=== PATIENT | female | born 1945 | race Caucasian/White ===

== ENCOUNTER → 2018-09-15 | Outpatient (REF) | payer MEDICARE ==
[~2018-09-15] MED LIST: AMLO5TAB2 PO; ASPI81TA85 PO; BUSP5TA PO; FAMO40TA3 PO; HYDR-3644 PO; LISI5TAB PO; SYNT75TA PO; TYLE325T5 PO; VITA200016 PO; XANA0.25 PO
[2018-09-15 13:58] LABS: APPEARANCE, URINE HAZY (CLEAR); BACTERIA, URINE AUTO NEGATIVE (NEGATIVE); BILIRUBIN, URINE AUTO NEGATIVE (NEGATIVE); BLOOD, URINE BLOOD NEGATIVE (NEGATIVE); COLOR, URINE YELLOW (YELLOW); GLUCOSE, URINE (UA) AUTO NEGATIVE (NEGATIVE); KETONE, URINE AUTO NEGATIVE (NEGATIVE); LEUKOCYTE ESTERASE, URINE AUTO NEGATIVE (NEGATIVE); MUCUS, URINE SMALL (NEGATIVE); NITRITE, URINE AUTO NEGATIVE (NEGATIVE); PROTEIN, URINE AUTO NEGATIVE (NEGATIVE); RBC, URINE AUTO 1 /HPF (0-3); SPECIFIC GRAVITY URINE AUTO 1.011 (1.002-1.035); SQUAMOUS EPITHELIAL CELL UR AU 11 /HPF (0-6); UROBILINOGEN, URINE AUTO 0.2 mg/dL (0.0-2.0); WBC, URINE AUTO 0 /HPF (0-3)
== END ==
LOC: M SFHCPLAZ 13:01
PROVIDERS: ATTEND Internal Medicine Infectious Disease
DX: N39.0 Urinary tract infection, site not specified (principal)
CPT/HCPCS: 81001; 87086; G0463

== ENCOUNTER → 2019-02-28 | Outpatient (REF) | payer MEDICARE ==
[2019-02-28 16:51] LABS: APPEARANCE, URINE CLOUDY (CLEAR); BACTERIA, URINE AUTO 2+ (NEGATIVE); BILIRUBIN, URINE AUTO NEGATIVE (NEGATIVE); BLOOD, URINE BLOOD NEGATIVE (NEGATIVE); CALCIUM OXALATE CRYSTALS LARGE; COLOR, URINE YELLOW (YELLOW); GLUCOSE, URINE (UA) AUTO NEGATIVE (NEGATIVE); KETONE, URINE AUTO NEGATIVE (NEGATIVE); LEUKOCYTE ESTERASE, URINE AUTO 2+ (NEGATIVE); MUCUS, URINE SMALL (NEGATIVE); NITRITE, URINE AUTO NEGATIVE (NEGATIVE); PROTEIN, URINE AUTO NEGATIVE (NEGATIVE); RBC, URINE AUTO 1 /HPF (0-3); SPECIFIC GRAVITY URINE AUTO 1.013 (1.002-1.035); SQUAMOUS EPITHELIAL CELL UR AU 17 /HPF (0-6); UROBILINOGEN, URINE AUTO 0.2 mg/dL (0.0-2.0); WBC, URINE AUTO 65 /HPF (0-3)
== END ==
LOC: M SFHCPLAZ 15:30
PROVIDERS: ATTEND Internal Medicine Infectious Disease
DX: N39.0 Urinary tract infection, site not specified (principal)
CPT/HCPCS: 81001; 87088; 87186; G0463

== ENCOUNTER → 2020-04-23 | Outpatient (REF) | payer MEDICARE ==
[2020-04-23 18:26] LABS: APPEARANCE, URINE CLOUDY (CLEAR); BACTERIA, URINE AUTO 1+ (NEGATIVE); BILIRUBIN, URINE AUTO NEGATIVE (NEGATIVE); BLOOD, URINE BLOOD NEGATIVE (NEGATIVE); COLOR, URINE YELLOW (YELLOW); GLUCOSE, URINE (UA) AUTO NEGATIVE (NEGATIVE); KETONE, URINE AUTO NEGATIVE (NEGATIVE); LEUKOCYTE ESTERASE, URINE AUTO TRACE (NEGATIVE); MUCUS, URINE SMALL (NEGATIVE); NITRITE, URINE AUTO NEGATIVE (NEGATIVE); PROTEIN, URINE AUTO NEGATIVE (NEGATIVE); RBC, URINE AUTO 2 /HPF (0-3); SQUAMOUS EPITHELIAL CELL UR AU 15 /HPF (0-6); UROBILINOGEN, URINE AUTO 0.2 mg/dL (0.0-2.0); WBC, URINE AUTO 4 /HPF (0-3)
== END ==
LOC: M SFHCPLAZ 17:16
PROVIDERS: ATTEND Internal Medicine Infectious Disease
DX: R30.0 Dysuria (principal)
CPT/HCPCS: 81001; 81002; 87086; G0463

== ENCOUNTER → 2020-05-23 | Outpatient (REF) | payer MEDICARE ==
[2020-05-23 18:06] LABS: APPEARANCE, URINE CLOUDY (CLEAR); BACTERIA, URINE AUTO 1+ (NEGATIVE); BILIRUBIN, URINE AUTO NEGATIVE (NEGATIVE); BLOOD, URINE BLOOD NEGATIVE (NEGATIVE); CALCIUM OXALATE CRYSTALS SMALL; COLOR, URINE YELLOW (YELLOW); GLUCOSE, URINE (UA) AUTO NEGATIVE (NEGATIVE); KETONE, URINE AUTO NEGATIVE (NEGATIVE); LEUKOCYTE ESTERASE, URINE AUTO TRACE (NEGATIVE); MUCUS, URINE SMALL (NEGATIVE); NITRITE, URINE AUTO NEGATIVE (NEGATIVE); PROTEIN, URINE AUTO 1+ mg/dL (NEGATIVE); RBC, URINE AUTO 2 /HPF (0-3); SPECIFIC GRAVITY URINE AUTO 1.013 (1.002-1.035); SQUAMOUS EPITHELIAL CELL UR AU 12 /HPF (0-6); UROBILINOGEN, URINE AUTO 0.2 mg/dL (0.0-2.0); WBC, URINE AUTO 6 /HPF (0-3)
== END ==
LOC: M SFHCPLAZ 16:54
PROVIDERS: ATTEND Internal Medicine Infectious Disease
DX: N39.0 Urinary tract infection, site not specified (principal)
CPT/HCPCS: 81001; 87086; G0463

== ENCOUNTER 2020-12-02 16:16 | Observation (INO) | payer MEDICARE ==
[~2020-12-02] VITALS: Ht 165.1 cm; Wt 89.1 kg
--- NOTE | 2020-12-02 19:26 | REP ---
INDICATION: SEPSIS/SHOCK. COMPARISON: None. TECHNIQUE: Portable FINDINGS: The technique utilized in obtaining the radiograph has magnified the cardiac silhouette and accentuated the interstitial markings. There is mild cardiomegaly accentuated by technique. The lung sidhu are clear. No patchy opacities or pleural effusions are identified. Mild interstitial fibrotic changes are suspected. The osseous structures are within normal limits. IMPRESSION: Mild cardiomegaly without evidence of acute cardiopulmonary disease <Electronically signed by Jere Chavez > 12/02/201921
[2020-12-02] MEDS ORDERED: ALPRAZolam 0.25 MG TAB PO ONE (19:45)
[2020-12-02 20:28] LABS: BASO % 0.4 % (0.0-1.0); EOS % 0.4 % (0.0-3.0); HEMATOCRIT 37.5 % (36.0-47.0); LYMPH # 1.5 10^3/uL (1.5-5.0); LYMPH % 21.9 % (24.0-44.0); MEAN CORPUSCULAR HEMOGLOBIN 29.5 pg (27.0-33.0); MEAN CORPUSCULAR HGB CONC 34.7 g/dl (32.0-36.5); MEAN CORPUSCULAR VOLUME 85.2 fl (80.0-96.0); MONO # 0.6 10^3/uL (0.0-0.8); MONO % 8.8 % (2.0-8.0); NEUTROPHILS # 4.5 10^3/uL (1.5-8.5); NEUTROPHILS % 67.5 % (36.0-66.0); PLATELET COUNT, AUTOMATED 452 10^3/uL (150-450); WHITE BLOOD COUNT 6.7 10^3/uL (4.0-10.0)
[2020-12-02] MEDS ORDERED: PARO5TAB PO (20:38)
[2020-12-02] MEDS ORDERED: AMLO1TAB25 PO (20:38)
[2020-12-02] MEDS ORDERED: EUTH100T PO (20:38)
[2020-12-02 20:42] LABS: INR 0.92; PROTHROMBIN TIME 12.6 SECONDS (12.5-14.3)
[2020-12-02 20:43] LABS: PARTIAL THROMBOPLASTIN TIME 28.9 SECONDS (24.2-38.5)
[2020-12-02 21:04] LABS: BLOOD UREA NITROGEN 7 MG/DL (7-18); CALCIUM LEVEL 8.2 MG/DL (8.8-10.2); CARBON DIOXIDE LEVEL 26 MEQ/L (21-32); CHLORIDE LEVEL 102 MEQ/L (98-107); CREATININE FOR GFR 0.91 MG/DL (0.55-1.30); GLOMERULAR FILTRATION RATE > 60.0 (>39); GLUCOSE, FASTING 103 MG/DL (70-100); POTASSIUM SERUM 2.9 MEQ/L (3.5-5.1); SODIUM LEVEL 136 MEQ/L (136-145)
[2020-12-02 21:05] LABS: ALBUMIN 3.2 GM/DL (3.2-5.2); ALT/SGPT 40 U/L (12-78); BILIRUBIN,DIRECT 0.3 MG/DL (0.0-0.2); BILIRUBIN,TOTAL 0.9 MG/DL (0.2-1.0); CK-MB VALUE MASS 5.1 NG/ML (<3.6); CPK CREATINE PHOSPHOKINASE 234 U/L (26-192); LIPASE 92 U/L (73-393); MB/CK RELATIVE INDEX 2.18 (< OR =4); TOTAL PROTEIN 6.9 GM/DL (6.4-8.2); TROPONIN I < 0.02 NG/ML (< 0.10)
[2020-12-02] MEDS ORDERED: POTASSIUM CHLORIDE 10 MEQ SR TABLET PO ONE (22:15)
[2020-12-02] MEDS ORDERED: KCL 10MEQ/100ML SWI (KRUN) 10 MEQ in IV 1 EA IV ONE (22:15)
--- NOTE | 2020-12-02 22:23 | IPNPDOC ---
Text Note Date of Service The patient was seen on 12/02/20. VS,Rodrigo, I+O VS, Yamilethe, I+O Laboratory Tests 12/02/20 19:58 Vital Signs Date Time Temp Pulse Resp B/P (MAP) Pulse Ox O2 Delivery O2 Flow Rate FiO2 12/02/20 21:03 98.0 88 22 138/76 (96) 96 Room Air REBA BILLY MD Dec 02, 2020 22:23
[2020-12-02] MEDS ORDERED: ACETAMINOPHEN TAB 650MG DOSE (2X325MG) PO PRN (22:55)
[2020-12-02] MEDS ORDERED: ONDANSETRON 4MG/2ML VIAL IV PRN (22:55)
[2020-12-02] MEDS: KCL 40MEQ in NS 1000ML 1,000 ML IV SCH (23:00)
--- NOTE | 2020-12-02 23:14 | HPEPDOC ---
[facility] Medical History & Physical Date of Admission Dec 02, 2020 Date of Service: Dec 02, 2020 Attending Physician: REBA BILLY MD History and Physical CHIEF COMPLAINT: [75 y/o female with a cc of fatigue, inability to urinate] HISTORY OF PRESENT ILLNESS: [This is a 75 y/o female with a pmh of TIA, hld, htn, hypothyroidism, anxiety and c diff colitis who presents to the ED with a cc of weakness, fatigue and new onset inability to void. Patient states that she has felt on and off weak and fatigued over the past few days and suddenly today realized that she had not urinated and did not feel the urge to. Patient admits to recent poor oral intake d/t her fatigue. Patient states that she has also been experiencing a lot of anxiety in her personal life that she feels is adding to her current situation. Patient spontaneously urinated several times after presenting to the ED. Patient denies fever, chills, sob, chest pain, abd pain, n/v/d/c. Of note, patient found to be COVID+ and have a hypokalemia of 2.9 in the ED. ] PAST MEDICAL HISTORY: 1. [See HPI PAST SURGICAL HISTORY: 1. [Cholecystectomy]. 2. [Appendectomy]. 3. [Colonic polyps 4. 2 Tubal ligations]. SOCIAL HISTORY: Tobacco use:[Denies] ETOH: [Denies] Illicit drug use: [Denies] FAMILY HISTORY: Reviewed - none pertinent ALLERGIES: Please see below. REVIEW OF SYSTEMS: CONSTITUTIONAL: [Denies fever, chills]. HEENT: [Denies uri sx]. CARDIOVASCULAR: [See HPI]. RESPIRATORY: [See HPI]. GASTROINTESTINAL: [See HPI]. GENITOURINARY: [See HPI]. SKIN: [Denies rash]. MUSCULOSKELETAL: [Complains of generalized weakness]. NEUROLOGICAL: [Denies syncope, paresthesias]. ENDOCRINE: [Denies hx of DM]. HEMATOLOGIC/LYMPHATIC: [Denies easy bruising]. HOME MEDICATIONS: Please see below. PHYSICAL EXAMINATION: VITAL SIGNS: Please see below. GENERAL APPEARANCE: [This is a frail appearing 75 y/o female. She does not appear to be in any respiratory distress.]. HEENT: [No mass or lesion. EOMI. No scleral icterus. Nares patent. Oral mucosa dry.]. CARDIOVASCULAR: [Regular rate, rhythm. No murmurs, rubs, gallops]. LUNGS: [Good air flow b/l. No wheezing, rales, rhonchi.]. ABDOMEN: [Soft, nontender]. MUSCULOSKELETAL: [No joint deformity noted]. EXTREMITIES: [No peripheral edema. No overlying skin changes. Pulses intact.]. NEUROLOGICAL: [Speech clear. A+Ox3. No focal deficits.]. PSYCHIATRIC: [Depressed mood. Affect appears appropriate.]. LABORATORY DATA: See below. IMAGING: [CXR: FINDINGS: The technique utilized in obtaining the radiograph has magnified the cardiac silhouette and accentuated the interstitial markings. There is mild cardiomegaly accentuated by technique. The lung sidhu are clear. No patchy opacities or pleural effusions are identified. Mild interstitial fibrotic changes are suspected. The osseous structures are within normal limits. IMPRESSION: Mild cardiomegaly without evidence of acute cardiopulmonary disease] MICROBIOLOGY: Please see below. ASSESSMENT: [his is a 75 y/o female with a pmh of TIA, hld, htn, hypothyroidism, anxiety and c diff colitis who presents to the ED with a cc of weakness, fatigue and new onset inability to void. Patient spontaneously urinated several times after presenting to the ED. Of note, patient found to be COVID+ and have a hypokalemia of 2.9 in the ED.]. . PLAN: 1. [Hypokalemia - Likely 2/2 poor oral intake - Patient received 40 meQ oral and 10 meQ IV in the ED - Will run NS with 40meQ of k overnight and recheck in the morning - Will place patient on tele - Admit to med surg under obs for potassium repletion 2. COVID19 - At this point, patient seems to be asymptomatic besides her fatigue and weakness, which may be moreso explained by her hypokalemia - I do not feel at this time antiviral medication is indicated. Day team may rec onsider 3. HTN - continue lisinopril 4. Hypothyroidism - continue levothyroxine 5. Anxiety - continue paxil DVT prophylaxis - Lovenox]. Vital Signs Vital Signs Date Time Temp Pulse Resp B/P (MAP) Pulse Ox O2 Delivery O2 Flow Rate FiO2 12/02/20 21:03 98.0 88 22 138/76 (96) 96 Room Air Laboratory Data Labs 24H Laboratory Tests 2 6/14/21 19:58: Immature Granulocyte % (Auto) 1.0, Neutrophils (%) (Auto) 67.5H, Lymphocytes (%) (Auto) 21.9L, Monocytes (%) (Auto) 8.8H, Eosinophils (%) (Auto) 0.4, Basophils (%) (Auto) 0.4, Neutrophils # (Auto) 4.5, Lymphocytes # (Auto) 1.5, Monocytes # (Auto) 0.6, Eosinophils # (Auto) 0.0, Basophils # (Auto) 0.0, Nucleated Red Blood Cells % (auto) 0.0, Prothrombin Time 12.6, Prothromb Time International Ratio 0.92, Activated Partial Thromboplast Time 28.9, Urine Color YELLOW, Urine Appearance CLEAR, Urine pH 7.0, Urine Specific [place] 1.002, Urine Protein NEGATIVE, Urine Glucose (UA) NEGATIVE, Urine Ketones NEGATIVE, Urine Blood 1+H, Urine Nitrite NEGATIVE, Urine Bilirubin NEGATIVE, Urine Urobilinogen 0.2, Urine Leukocyte Esterase NEGATIVE, Urine WBC (Auto) 1, Urine RBC (Auto) 0, Urine Hyaline Casts (Auto) 0, Urine Bacteria (Auto) NEGATIVE, Urine Squamous Epithelial Cells 1, Urine Mucus (Auto) SMALL, Urine Sperm (Auto) , Anion Gap 8, Glomerular Filtration Rate > 60.0, Calcium Level 8.2L, Total Bilirubin 0.9, Direct Bilirubin 0.3H, Aspartate Amino Transf (AST/SGOT) 25, Alanine Aminotransferase (ALT/SGPT) 40, Alkaline Phosphatase 136H, Total Creatine Kinase 234H, Creatine Kinase MB 5.1H, Creatine Kinase MB Relative Index 2.18, Troponin I < 0.02, Total Protein 6.9, Albumin 3.2, Albumin/Globulin Ratio 0.9L, Lipase 92 CBC/BMP Laboratory Tests 12/02/20 19:58 Microbiology Microbiology 12/02/20 Respiratory Virus Panel (PCR) ([facility]) - Final, Complete SARS-CoV-2 (COVID 19) Home Medications Scheduled Amlodipine Besylate (Amlodipine Besylate) 10 Mg Tablet, 10 MG PO DAILY Levothyroxine Sodium (Euthyrox) 100 Mcg Tablet, 100 MCG PO DAILY Paroxetine (Paroxetine HCl) 10 Mg Tablet, 10 MG PO DAILY Vancomycin Hcl (Vancomycin HCl) 125 Mg Capsule, 125 MG PO ASDIRECTED STARTED ON 11/20/20: TAKE 1 CAPSULE QID FOR 14 DAYS, THEN 1 CAPSULE BID FOR 7 DAYS, THEN 1 CAPSULE Q2D FOR 6 WEEKS Allergies Coded Allergies: latex (Verified Allergy, Mild, 12/02/20) rash. ampicillin (Verified Allergy, Unknown, 12/02/20) doxycycline (Verified Allergy, Unknown, 12/02/20) nitrofurantoin (Verified Allergy, Unknown, 12/02/20) sulfamethoxazole (Verified Allergy, Unknown, 12/02/20) trimethoprim (Verified Allergy, Unknown, 12/02/20) A-FIB/CHADSVASC A-FIB History Current/History of A-Fib/PAF?: No RICHARD FOUNTAIN Dec 02, 2020 23:14 REBA BILLY MD Dec 03, 2020 06:48
[2020-12-03 00:07] LABS: MAGNESIUM LEVEL 2.2 MG/DL (1.8-2.4)
[2020-12-03 01:02] VITALS: BP 145/67; O2SAT 99
[2020-12-03] MEDS ORDERED: RAMELTEON 8 MG TAB (ROZEREM) PO ONE (02:40)
[2020-12-03 04:00] VITALS: BP 166/72; O2SAT 98
[2020-12-03 05:15] LABS: HEMATOCRIT 36.3 % (36.0-47.0); HEMOGLOBIN 12.4 g/dl (12.0-15.5); MEAN CORPUSCULAR HGB CONC 34.2 g/dl (32.0-36.5); PLATELET COUNT, AUTOMATED 475 10^3/uL (150-450); RED BLOOD COUNT 4.27 10^6/uL (4.00-5.40); WHITE BLOOD COUNT 7.5 10^3/uL (4.0-10.0)
[2020-12-03 05:26] LABS: BLOOD UREA NITROGEN 5 MG/DL (7-18); CALCIUM LEVEL 8.5 MG/DL (8.8-10.2); CARBON DIOXIDE LEVEL 24 MEQ/L (21-32); CHLORIDE LEVEL 109 MEQ/L (98-107); CREATININE FOR GFR 0.91 MG/DL (0.55-1.30); GLOMERULAR FILTRATION RATE > 60.0 (>39); GLUCOSE, FASTING 89 MG/DL (70-100); MAGNESIUM LEVEL 2.3 MG/DL (1.8-2.4); POTASSIUM SERUM 3.8 MEQ/L (3.5-5.1); SODIUM LEVEL 140 MEQ/L (136-145)
[2020-12-03] MEDS ORDERED: VANCOMYCIN ORAL SOL 250MG/5ML ORAL SYRINGE PO SCH (06:00)
[2020-12-03] MEDS ORDERED: LEVOTHYROXINE 100MCG TABLET (0.1MG) PO SCH (06:00)
[2020-12-03] MEDS ORDERED: VANC125C3 PO (06:23)
[2020-12-03 08:00] VITALS: BP 165/65; O2SAT 99
[2020-12-03] MEDS ORDERED: PARoxetine 10MG TABLET PO SCH (09:00)
[2020-12-03] MEDS ORDERED: ENOXAPARIN 40MG/0.4ML SYRINGE (J1650 PER 10MG) SC SCH (09:00)
[2020-12-03] MEDS ORDERED: LISI20TA33 PO (09:44)
[2020-12-03] MEDS: KCL 40MEQ in NS 1000ML 1,000 ML IV SCH (09:51)
[2020-12-03 12:00] VITALS: BP 159/69; O2SAT 99
[2020-12-03] MEDS ORDERED: EQL1CAP9 PO (13:10)
[2020-12-03] MEDS ORDERED: POTA8CAP10 PO (13:11)
[2020-12-03] MEDS ORDERED: PARO5TAB PO (13:55)
--- NOTE | 2020-12-03 20:52 | ECGEPIP ---
[facility] - ED Test Date: 2020-12-02 Pat Name: SAMY JUAN Department: Room: [place] [address] Gender: Female [place]: : 1945 Requested By: GAGAN Aguilar Order Number: [id number] Reading MD: Anastasiya Archuleta Measurements Intervals [place] Rate: 89 P: 33 GA: 156 QRS: 15 QRSD: 86 T: 66 QT: 416 QTc: 506 Interpretive Statements Normal sinus rhythm NSTTW abnormalities prolonged qtc No prior Electronically Signed on 12-03-2020 20:52:18 EDT by Anastasiya Archuleta
== END 2020-12-03 14:15 | disposition home or self-care (01) ==
LOC: M ED 16:16 → EDBD 16:16 → M ED INP 16:17 → ENRESERV 23:10 → M ICU 12-03 00:24
PROVIDERS: ADMIT Internal Medicine; ATTEND Internal Medicine
DX: U07.1 COVID-19 (principal); E87.6 Hypokalemia; I11.9 Hypertensive heart disease without heart failure; E03.9 Hypothyroidism, unspecified; F41.9 Anxiety disorder, unspecified; A04.72 Enterocolitis due to Clostridium difficile, not specified as recurrent; Z86.73 Personal history of transient ischemic attack (TIA), and cerebral infarction without residual deficits; Z87.440 Personal history of urinary (tract) infections; R53.1 Weakness; R53.83 Other fatigue; Z79.899 Other long term (current) drug therapy; Z79.2 Long term (current) use of antibiotics; Z88.1 Allergy status to other antibiotic agents; Z88.8 Allergy status to other drugs, medicaments and biological substances; Z88.2 Allergy status to sulfonamides; Z91.040 Latex allergy status; Z87.891 Personal history of nicotine dependence
CPT/HCPCS: 36415; 71045; 80048; 80076; 81001; 82550; 82553; 83690; 83735; 84484; 85025; 85027; 85610; 85730; 87798; 93005; 96365; 96366; 96375; 99285; G0378; J1650

== ENCOUNTER 2020-12-06 17:50 | Emergency (ER) | payer MEDICARE ==
[~2020-12-06] VITALS: Ht 165.1 cm; Wt 90.0 kg
[~2020-12-06 17:50] MED LIST changes: +AMLO1TAB25 PO; +EQL1CAP9 PO; +EUTH100T PO; +LISI20TA33 PO; +PARO5TAB PO; +POTA8CAP10 PO; +VANC125C3 PO
[2020-12-06 18:54] LABS: HEMOGLOBIN 13.6 g/dl (12.0-15.5); MEAN CORPUSCULAR HEMOGLOBIN 29.1 pg (27.0-33.0); MEAN CORPUSCULAR HGB CONC 33.2 g/dl (32.0-36.5); MEAN CORPUSCULAR VOLUME 87.6 fl (80.0-96.0); PLATELET COUNT, AUTOMATED 565 10^3/uL (150-450); RED BLOOD COUNT 4.68 10^6/uL (4.00-5.40); WHITE BLOOD COUNT 7.1 10^3/uL (4.0-10.0)
[2020-12-06 19:10] LABS: AMPHETAMINES LEVEL URINE NEGATIVE (NEGATIVE); BARBITURATES URINE NEGATIVE (NEGATIVE); BENZODIAZEPINES URINE NEGATIVE (NEGATIVE); CANNABINOIDS URINE NEGATIVE (NEGATIVE); COCAINE METABOLITE URINE NEGATIVE (NEGATIVE); METHADONE URINE NEGATIVE (NEGATIVE); OPIATES URINE NEGATIVE (NEGATIVE); PHENCYCLIDINE URINE NEGATIVE (NEGATIVE)
[2020-12-06 19:22] LABS: ACETAMINOPHEN LEVEL < 2.0 UG/ML (10.0-30.0); ALBUMIN 3.5 GM/DL (3.2-5.2); ALT/SGPT 33 U/L (12-78); BILIRUBIN,DIRECT 0.3 MG/DL (0.0-0.2); BILIRUBIN,TOTAL 0.9 MG/DL (0.2-1.0); BLOOD UREA NITROGEN 8 MG/DL (7-18); CALCIUM LEVEL 8.8 MG/DL (8.8-10.2); CARBON DIOXIDE LEVEL 23 MEQ/L (21-32); CHLORIDE LEVEL 108 MEQ/L (98-107); CREATININE FOR GFR 1.07 MG/DL (0.55-1.30); ETHYL ALCOHOL (ETHANOL) < 0.003 % (0.000-0.010); GLOMERULAR FILTRATION RATE 53.1 (>39); GLUCOSE, FASTING 109 MG/DL (70-100); POTASSIUM SERUM 3.7 MEQ/L (3.5-5.1); SALICYLATE LEVEL < 1.7 MG/DL (5.0-30.0); SODIUM LEVEL 140 MEQ/L (136-145); TOTAL PROTEIN 7.1 GM/DL (6.4-8.2)
[2020-12-06] MEDS ORDERED: LORazepam 1 MG TAB PO STA (22:59)
[2020-12-07] MEDS ORDERED: LEVOTHYROXINE 100MCG TABLET (0.1MG) PO ONE (06:25)
[2020-12-07] MEDS ORDERED: PROBCAP14 PO (06:51)
[2020-12-07] MEDS ORDERED: LISI20TA33 PO (06:51)
[2020-12-07] MEDS ORDERED: PARO10TA3 PO (06:51)
[2020-12-07] MEDS ORDERED: POTA1TAB21 PO (06:51)
--- NOTE | 2020-12-07 08:00 | ECGEPIP ---
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
[2020-12-07] MEDS ORDERED: POTASSIUM CHLORIDE 10 MEQ SR TABLET PO ONE (08:05)
[2020-12-07] MEDS ORDERED: LACTOBACILLUS ACIDOPHILUS CAP (BACID) PO ONE (08:05)
[2020-12-07] MEDS ORDERED: PARoxetine 10MG TABLET PO ONE (08:05)
[2020-12-07 09:05] VITALS: BP 109/56
[2020-12-07] MEDS ORDERED: ACETAMINOPHEN TAB 650MG DOSE (2X325MG) PO ONE (14:20)
[2020-12-07 15:30] LABS: RSV AMPLIFICATION NEGATIVE (NEGATIVE)
[2020-12-08] MEDS ORDERED: POTASSIUM CHLORIDE 10 MEQ SR TABLET PO ONE (07:50)
[2020-12-08] MEDS ORDERED: LEVOTHYROXINE 100MCG TABLET (0.1MG) PO ONE (07:50)
[2020-12-08] MEDS ORDERED: PARoxetine 10MG TABLET PO ONE (07:50)
[2020-12-08] MEDS ORDERED: ACETAMINOPHEN TAB 650MG DOSE (2X325MG) PO ONE (07:55)
[2020-12-08 09:15] VITALS: BP 139/62
== END 2020-12-08 09:17 ==
LOC: M ED 17:50
DX: F33.9 Major depressive disorder, recurrent, unspecified (principal); I10 Essential (primary) hypertension; Z79.899 Other long term (current) drug therapy; Z88.0 Allergy status to penicillin; Z88.1 Allergy status to other antibiotic agents; Z88.2 Allergy status to sulfonamides; Z88.8 Allergy status to other drugs, medicaments and biological substances; Z91.040 Latex allergy status
CPT/HCPCS: 36415; 80048; 80076; 80143; 80307; 82077; 84443; 85027; 87631; 93005; 99284; G0480

== ENCOUNTER → 2023-04-30 | Outpatient (REF) | payer MEDICARE, OTHER ==
[~2023-04-30] MED LIST changes: +PARO10TA3 PO; +POTA1TAB21 PO; +PROBCAP14 PO
== END ==
LOC: M LAB REF 16:23
PROVIDERS: ATTEND Physician Assistant Medical
DX: R30.0 Dysuria (principal)

== ENCOUNTER → 2023-06-11 | Outpatient (REF) | payer OTHER | LOC: M LAB REF 16:48 | PROVIDERS: ATTEND Internal Medicine | DX: R35.0 Frequency of micturition (principal); R30.0 Dysuria ==

== ENCOUNTER → 2023-08-27 | Outpatient (REF) | payer OTHER | LOC: M LAB REF 16:44 | PROVIDERS: ATTEND Internal Medicine | DX: N39.0 Urinary tract infection, site not specified (principal) ==

== ENCOUNTER → 2023-09-21 | Outpatient (REF) | payer OTHER ==
[2023-09-21 11:58] LABS: APPEARANCE, URINE HAZY (CLEAR); BACTERIA, URINE AUTO 1+ (NEGATIVE); BILIRUBIN, URINE AUTO NEGATIVE (NEGATIVE); BLOOD, URINE BLOOD 1+ (NEGATIVE); COLOR, URINE YELLOW (YELLOW); GLUCOSE, URINE (UA) AUTO NEGATIVE (NEGATIVE); KETONE, URINE AUTO NEGATIVE (NEGATIVE); LEUKOCYTE ESTERASE, URINE AUTO NEGATIVE (NEGATIVE); NITRITE, URINE AUTO NEGATIVE (NEGATIVE); PROTEIN, URINE AUTO NEGATIVE (NEGATIVE); RBC, URINE AUTO 0 /HPF (0-3); SPECIFIC GRAVITY URINE AUTO 1.013 (1.002-1.035); SQUAMOUS EPITHELIAL CELL UR AU 22 /HPF (0-6); UROBILINOGEN, URINE AUTO 0.2 mg/dL (0.0-2.0); WBC, URINE AUTO 1 /HPF (0-3)
== END ==
LOC: M LAB REF 11:30
PROVIDERS: ATTEND Internal Medicine
DX: R30.0 Dysuria (principal)

== ENCOUNTER → 2023-11-01 | Outpatient (CLI) | payer MEDICARE, OTHER, SELFPAY | LOC: M WHC 14:25 | PROVIDERS: ATTEND Nurse Practitioner Family | DX: N39.0 Urinary tract infection, site not specified (principal) ==

== ENCOUNTER → 2023-12-20 | Outpatient (REF) | payer OTHER | LOC: M LAB REF 16:22 | PROVIDERS: ATTEND Internal Medicine | DX: R30.0 Dysuria (principal) ==

== ENCOUNTER → 2024-02-24 | Outpatient (REF) | payer OTHER | LOC: M LAB REF 13:03 | PROVIDERS: ATTEND Nurse Practitioner Family | DX: R30.0 Dysuria (principal); R35.0 Frequency of micturition ==

== ENCOUNTER 2024-06-22 12:45 | Emergency (ER) | payer MEDICAID, OTHER ==
[~2024-06-22] VITALS: Ht 165.1 cm; Wt 79.3 kg
[2024-06-22 16:14] LABS: BASO % 0.6 % (0.0-1.0); EOS # 0.1 10^3/uL (0.0-0.5); EOS % 0.8 % (0.0-3.0); HEMATOCRIT 41.5 % (36.0-47.0); HEMOGLOBIN 13.7 g/dl (12.0-15.5); LYMPH # 1.6 10^3/uL (1.5-5.0); LYMPH % 25.2 % (24.0-44.0); MEAN CORPUSCULAR HEMOGLOBIN 29.7 pg (27.0-33.0); MONO # 0.3 10^3/uL (0.0-0.8); NEUTROPHILS # 4.3 10^3/uL (1.5-8.5); NEUTROPHILS % 68.2 % (36.0-66.0); PLATELET COUNT, AUTOMATED 213 10^3/uL (150-450); RED BLOOD COUNT 4.61 10^6/uL (4.00-5.40); WHITE BLOOD COUNT 6.3 10^3/uL (4.0-10.0)
[2024-06-22 16:27] LABS: KETONE, URINE AUTO RFX TRACE mg/dL (NEGATIVE); LEUKOCYTE ESTERASE UR AUTO RFX NEGATIVE (NEGATIVE); NITRITE, URINE AUTO RFX NEGATIVE (NEGATIVE)
[2024-06-22 16:43] LABS: ALBUMIN 4.2 G/DL (3.2-5.2); BILIRUBIN,DIRECT 0.3 MG/DL (<0.4); BILIRUBIN,TOTAL 1.2 MG/DL (0.3-1.2); CALCIUM LEVEL 9.8 MG/DL (8.3-10.6); CREATININE FOR GFR 1.13 MG/DL (0.55-1.30); GLOMERULAR FILTRATION RATE 49.3 (>32); POTASSIUM SERUM 4.3 MMOL/L (3.5-5.1); TOTAL PROTEIN 7.4 G/DL (5.7-8.2)
[2024-06-22] MEDS ORDERED: COLA100C5 PO (18:18)
[2024-06-22] MEDS: MAGNESIUM CITRATE 300ML BTL PO ONE (18:20)
[2024-06-22 18:37] VITALS: BP 165/85; TEMP 98.2; O2SAT 99
== END 2024-06-22 18:38 | disposition home or self-care (01) ==
LOC: M ED 12:45
DX: K59.00 Constipation, unspecified (principal); E06.9 Thyroiditis, unspecified; Z88.1 Allergy status to other antibiotic agents; Z88.2 Allergy status to sulfonamides; Z88.8 Allergy status to other drugs, medicaments and biological substances; Z91.040 Latex allergy status; Z79.899 Other long term (current) drug therapy

== ENCOUNTER → 2024-10-03 | Outpatient (REF) | payer OTHER, MEDICARE ==
[~2024-10-03] MED LIST changes: +COLA100C5 PO; +VANC125C13 PO; -VANC125C3 PO
== END ==
LOC: M LAB REF 17:06
PROVIDERS: ATTEND Internal Medicine
DX: R35.0 Frequency of micturition (principal); N32.81 Overactive bladder

== ENCOUNTER → 2024-10-09 | Outpatient (REF) | payer OTHER, MEDICARE | LOC: M LAB REF 16:57 | PROVIDERS: ATTEND Internal Medicine | DX: N39.0 Urinary tract infection, site not specified (principal) ==

== ENCOUNTER → 2024-10-19 | Outpatient (CLI) | payer MEDICARE | LOC: M PLAIMG 14:40 | PROVIDERS: ATTEND Internal Medicine | DX: H53.8 Other visual disturbances (principal); R44.1 Visual hallucinations; I67.82 Cerebral ischemia ==

== ENCOUNTER → 2025-01-10 | Outpatient (REF) | payer MEDICARE | LOC: M LAB REF 17:25 | PROVIDERS: ATTEND Internal Medicine | DX: N39.0 Urinary tract infection, site not specified (principal) ==

== ENCOUNTER → 2025-01-18 | Outpatient (REF) | payer MEDICARE | LOC: M LAB REF 14:27 | PROVIDERS: ATTEND Internal Medicine | DX: R30.0 Dysuria (principal); Z87.440 Personal history of urinary (tract) infections ==

== ENCOUNTER → 2025-02-27 | Outpatient (REF) | payer MEDICARE ==
[~2025-02-27] MED LIST changes: +CARB25TA18 PO; +OXYB5TAB14 PO
== END ==
LOC: M LAB REF 12:08
PROVIDERS: ATTEND Internal Medicine
DX: R44.1 Visual hallucinations (principal); F02.80 Dementia in other diseases classified elsewhere, unspecified severity, without behavioral disturbance, psychotic disturbance, mood disturbance, and anxiety; R30.0 Dysuria

== ENCOUNTER 2025-03-07 07:50 | Day surgery (SDC) | payer MEDICARE ==
[~2025-03-07] VITALS: Ht 165.1 cm; Wt 72.1 kg
[~2025-03-07 07:50] MED LIST changes: +PHENYLEPHRINE 10% OPHTH SOL 5ML OD PRN
[2025-03-07] MEDS: TROPICAMIDE 1% OPHTH SOLN 15ML OD SCH (08:44)
[2025-03-07] MEDS: OFLOXACIN 0.3 % (OCUFLOX) OPTH SOL 5ML OD ONE (08:44)
[2025-03-07] MEDS: PHENYLEPHRINE 2.5% OPHTH SOL 2ML OD SCH (08:44)
[2025-03-07] MEDS: LIDOCAINE 3.5% 1 ML OPHTH TOPICAL GEL OU ONE (08:44)
[2025-03-07] MEDS: CYCLOPENTOLATE 1% OPHTH SOLN 2 ML BTL OD SCH (08:44)
[2025-03-07] MEDS ORDERED: LABETALOL 100 MG/20 ML VIAL As Ordered ONE (09:17)
[2025-03-07] MEDS ORDERED: MIDAZOLAM INJ 2 MG/2 ML VIAL As Ordered ONE (09:19)
[2025-03-07] MEDS: CEFUROXIME 1 MG/0.1 ML INTRACAMERAL INJ As Ordered ONE (09:24)
[2025-03-07] MEDS: LIDOCAINE 1% SDV 5 ML VIAL As Ordered ONE (09:24)
[2025-03-07] MEDS: BSS IRRIG/VANCO(10MG)/TOBRA(5MG)/EPINEPH(1:1000-0.5CC)500ML BAG-ORONLY As Ordered ONE (09:25)
[2025-03-07] MEDS ORDERED: hydrALAZINE 20 MG/ML 1 ML VIAL As Ordered ONE (09:30)
[2025-03-07 09:39] VITALS: BP 189/84; TEMP 97.3; O2SAT 97
== END 2025-03-07 09:53 | disposition home or self-care (01) ==
LOC: M SDC 07:50
PROVIDERS: ATTEND Ophthalmology
DX: H25.11 Age-related nuclear cataract, right eye (principal); I10 Essential (primary) hypertension; E03.9 Hypothyroidism, unspecified; G20.A1 Parkinson's disease without dyskinesia, without mention of fluctuations; Z79.899 Other long term (current) drug therapy; Z88.1 Allergy status to other antibiotic agents; Z88.8 Allergy status to other drugs, medicaments and biological substances; Z91.040 Latex allergy status; Z90.49 Acquired absence of other specified parts of digestive tract; F41.9 Anxiety disorder, unspecified; F32.A Depression, unspecified
CPT/HCPCS: 66984; 92015; J0360; J0697; J1920; J2250; J3010; V2787

== ENCOUNTER 2025-04-04 08:55 | Day surgery (SDC) | payer MEDICARE ==
[~2025-04-04] VITALS: Ht 167.6 cm; Wt 72.5 kg
[2025-04-04] MEDS: LIDOCAINE 3.5% 1 ML OPHTH TOPICAL GEL OU ONE (06:00)
[2025-04-04] MEDS: OFLOXACIN 0.3 % (OCUFLOX) OPTH SOL 5ML OS ONE (06:00)
[~2025-04-04 08:55] MED LIST changes: +CEFUROXIME 1 MG/0.1 ML INTRACAMERAL INJ ONE; -PHENYLEPHRINE 10% OPHTH SOL 5ML OD PRN; +PHENYLEPHRINE 10% OPHTH SOL 5ML OS PRN; +QUET1TAB17 PO
[2025-04-04] MEDS ORDERED: MIDAZOLAM INJ 2 MG/2 ML VIAL As Ordered ONE (11:07)
[2025-04-04] MEDS ORDERED: LABETALOL 100 MG/20 ML VIAL As Ordered ONE (11:08)
[2025-04-04 12:26] VITALS: BP 183/77
[2025-04-04] MEDS: LABETALOL 100 MG/20 ML VIAL IV ONE (12:26)
[2025-04-04] MEDS: CEFUROXIME 1 MG/0.1 ML INTRACAMERAL INJ As Ordered ONE (12:30)
[2025-04-04] MEDS: BSS IRRIG/VANCO(10MG)/TOBRA(5MG)/EPINEPH(1:1000-0.5CC)500ML BAG-ORONLY As Ordered ONE (12:33)
[2025-04-04] MEDS: LIDOCAINE 1% SDV 5 ML VIAL As Ordered ONE (12:33)
[2025-04-04 14:58] VITALS: BP 166/84; TEMP 97.7; O2SAT 100
[2025-04-04] MEDS: CYCLOPENTOLATE 1% OPHTH SOLN 2 ML BTL OS SCH (15:03)
[2025-04-04] MEDS: PHENYLEPHRINE 2.5% OPHTH SOL 2ML OS SCH (15:03)
[2025-04-04] MEDS: TROPICAMIDE 1% OPHTH SOLN 15ML OS SCH (15:03)
== END 2025-04-04 15:01 | disposition home or self-care (01) ==
LOC: M SDC 08:55
PROVIDERS: ATTEND Ophthalmology
DX: H25.12 Age-related nuclear cataract, left eye (principal); I10 Essential (primary) hypertension; E03.9 Hypothyroidism, unspecified; G20.A1 Parkinson's disease without dyskinesia, without mention of fluctuations; Z79.899 Other long term (current) drug therapy; Z79.890 Hormone replacement therapy; F41.9 Anxiety disorder, unspecified; F32.A Depression, unspecified; Z90.49 Acquired absence of other specified parts of digestive tract; Z88.1 Allergy status to other antibiotic agents
CPT/HCPCS: 66984; 92015; J0697; J1920; J2250; J3010; V2788